=== PATIENT | female | born 1980 | race Caucasian/White ===

== ENCOUNTER → 2017-01-07 | Outpatient (CLI) | payer OTHER ==
--- NOTE | 2017-01-07 19:20 | CT ---
EXAMINATION TYPE: CT soft tissue neck w con DATE OF EXAM: 01/07/2017 7:13 PM COMPARISON: NONE HISTORY: Throat pain x 3 months. Pain under jaw, left side. Painful swallowing. CT DLP: 677.00 mGycm Automated exposure control for dose reduction was used. CONTRAST: CT scan of the neck is performed following with IV Contrast, patient injected with 100 mL of Omnipaqu e 300. Axial images are obtained, coronal and sagittal reformatted images are reviewed. FINDINGS: The thyroid gland appears normal. There is normal contrast opacification of carotid arteries and jugu lar veins. There is contrast normal opacification of the vertebral arteries. Epiglottis appears normal. There is no evidence of pharyngeal mass. Trachea appears normal. There is mucosal thickening in the left maxillary sinus. The submandibular salivary glands are symmet gordo. Parotid glands are symmetric. There is mild hypertrophy of the adenoids. Adenoids measures 13 mm . I see no bony destructive process. I see no cervical adenopathy.: IMPRESSION: There is mild hypertrophy of the adenoids. Mucous retention cyst left maxillary sinus. N o evidence of a pharyngeal mass.
== END | disposition home or self-care (01) ==
LOC: RADCTMAIN 18:47
PROVIDERS: ATTEND Family Medicine
DX: J35.2 Hypertrophy of adenoids (principal); R07.0 Pain in throat
CPT/HCPCS: 70491; Q9967

== ENCOUNTER → 2017-01-10 | Outpatient (CLI) | payer OTHER ==
--- NOTE | 2017-01-10 23:16 | MR ---
MRI CERVICAL SPINE: CLINICAL HISTORY: Headaches with neck pain causing left arm weakness per patient. Cervical region spi nal stenosis per order. TECHNIQUE: Multiplanar, multisequence imaging of the cervical spine is performed without IV contrast. COMPARISON: CT neck January 07, 2017. FINDINGS: Coronal images redemonstrates slight levoconvex scoliotic curvature centered in the mid to lower cervical spine. Sagittal images of the cervical spine show the craniocervical junction to appea r within normal limits. The cervical and upper thoracic spinal cord is normal in caliber and signal. Vertebral alignment is straightened on sagittal images. The vertebral body and intravertebral disk heights are normal. Small posterior disc herniation is seen C5-C6 level mildly effacing anterior the narinder sac. The bone marrow signal intensity is within normal limits. No significant spurring is seen. Axial images show the C2-C3, C3-C4, and C4-C5 levels to appear within normal limits. Axial images at C5-C6 level show broad-based disc protrusion effacing anterior thecal sac and causing moderate left and mild right-sided neural foraminal narrowing on axial image 23. Axial images at C6-C7 and C7-T1 levels are felt within normal limits. IMPRESSION: Loss of normal cervical curvature with degenerative change C5-C6 level noted.
== END | disposition home or self-care (01) ==
LOC: RADMRIMAIN 19:45
PROVIDERS: ATTEND Physician Assistant
DX: M47.812 Spondylosis without myelopathy or radiculopathy, cervical region (principal); M53.82 Other specified dorsopathies, cervical region
CPT/HCPCS: 72141

== ENCOUNTER 2017-07-18 20:00 | Emergency (ER) | payer BC, OTHER ==
[2017-07-18 20:04] VITALS: RESP 18
[2017-07-18] MEDS ORDERED: SODIUM CHLORIDE 0.9% 1,000 ML IV STA (20:19)
[2017-07-18 20:54] LABS: Basophils % (A) 0 %; Eosinophils # (A) 0.3 k/uL (0-0.7); Eosinophils % (A) 2 %; HCT 45.7 % (34.0-46.0); HGB 14.9 gm/dL (11.4-16.0); Lymphocytes # (A) 2.6 k/uL (1.0-4.8); Lymphocytes % (A) 24 %; MCH 28.4 pg (25.0-35.0); MCHC 32.6 g/dL (31.0-37.0); MCV 87.1 fL (80.0-100.0); Mean Platelet Volume 7.8; Monocytes # (A) 0.5 k/uL (0-1.0); Monocytes % (A) 5 %; Neutrophils # (A) 7.4 k/uL (1.3-7.7); Neutrophils % (A) 68 %; Platelet Count 116 k/uL (150-450); RBC 5.24 m/uL (3.80-5.40); RDW 13.1 % (11.5-15.5); WBC 10.9 k/uL (3.8-10.6)
[2017-07-18 21:05] LABS: ALT 23 U/L (9-52); AST 20 U/L (14-36); Albumin 4.4 g/dL (3.5-5.0); Alkaline Phosphatase 62 U/L (38-126); Anion Gap 12 mmol/L; Blood Urea Nitrogen 10 mg/dL (7-17); Calcium 9.5 mg/dL (8.4-10.2); Carbon Dioxide 27 mmol/L (22-30); Chloride 103 mmol/L (98-107); Glucose 89 mg/dL (74-99); Magnesium 2.1 mg/dL (1.6-2.3); Potassium 3.9 mmol/L (3.5-5.1); Sodium 142 mmol/L (137-145); Total Bilirubin 0.6 mg/dL (0.2-1.3); Total Protein 6.8 g/dL (6.3-8.2)
--- NOTE | 2017-07-18 21:09 | ED ---
Arrhythmia/Palpitations HPI - General Chief Complaint: Arrhythmia/Palpitations Stated Complaint: Tachy sent by [employer] Time Seen by Provider: 07/18/17 20:08 Source: patient, RN notes reviewed, old records reviewed Mode of arrival: ambulatory Limitations: no limitations - History of Present Illness Initial Comments: 36-year-old female sent by [facility] complaint of episodes of palpitations. She reports she has been having these symptoms off and on for many years. She reports it's been worse for the past 3 weeks. She went to [facility] my sent here due to abnormal EKG. She states that she wasn't chest pain and discomfort into her left arm when she has these symptoms. She denies any fever or chills. No nausea or vomiting or diaphoresis. Patient relates that she was supposed to have a stress test completed 5 years ago but then she found out that she had a bad knee and could not complete the walking test, as well as then later found out she was and cannot proceed with chemical test. She reports she never followed up with cardiology after this. She states that she had no major concerning symptoms afterward however as stated above has been worse over the past 3 weeks. Patient is a heavy tobacco smoker. She has a history of asthma. - Related Data Home Medications Medication Instructions Recorded Confirmed HYDROcodone/APAP 10-325MG [Lee 1 tab PO TID PRN 07/18/17 07/18/17 10-325] Lisdexamfetamine Dimesylate 50 mg PO QAM 07/18/17 07/18/17 [Vyvanse] Allergies Allergy/AdvReac Type Severity Reaction Status Date / Time latex Allergy Severe Rash/Hives Verified 07/18/17 20:23 NSAIDS (Non-Steroidal Allergy Unknown Swelling Verified 07/18/17 20:23 Anti-Inflamma Review of Systems ROS Statement: Those systems with pertinent positive or pertinent negative responses have been documented in the HPI. ROS Other: All systems not noted in ROS Statement are negative. Past Medical History Past Medical History: Asthma, Musculoskeletal Disorder Additional Past Medical History / Comment(s): MIGRAINES, PT STATES IRREGULAR HEARTBEAT, HERNIATED DISCS, "SWELLING IN LEGS AND ANKLES" History of Any Multi-Drug Resistant Organisms: None Reported Past Surgical History: Ear Surgery, Tonsillectomy Additional Past Surgical History / Comment(s): D & C, HYSTEROSCOPY, LEEP PROCEDURE, EAR TUBES X3. Past Anesthesia/Blood Transfusion Reactions: Family History of Problems w/ Anesthesia, Postoperative Nausea & Vomiting (PONV) Additional Past Anesthesia/Blood Transfusion Reaction / Comment(s): PT STATES SHE HAD SEVERE SWELLING ALL OVER. PTS MOTHER HAD SWELLING , DIFFICULTY BREATHING AND DIFFICULTY WAKING UP POST OP. Past Psychological History: Anxiety, Bipolar, Depression Smoking Status: Heavy tobacco smoker Past Alcohol Use History: None Reported Past Drug Use History: Marijuana - Past Family History Mother Family Medical History: Cancer, Congestive Heart Failure (CHF) Additional Family Medical History / Comment(s): CERVICAL CA Sister(s) Family Medical History: Hypertension Brother(s) Family Medical History: Hypertension General Exam - General Exam Comments Initial Comments: 36 year old female, no distress. Limitations: no limitations General appearance: alert, in no apparent distress Head exam: Present: atraumatic, normocephalic, normal inspection Eye exam: Present: normal appearance, PERRL, EOMI. Absent: scleral icterus, conjunctival injection, periorbital swelling ENT exam: Present: normal exam, mucous membranes moist Neck exam: Present: normal inspection. Absent: tenderness, meningismus, lymphadenopathy Respiratory exam: Present: normal lung sounds bilaterally. Absent: respiratory distress, wheezes, rales, rhonchi, stridor Cardiovascular Exam: Present: regular rate, normal rhythm, normal heart sounds. Absent: systolic murmur, diastolic murmur, rubs, gallop, clicks Extremities exam: Present: normal inspection, full ROM, normal capillary refill. Absent: tenderness, pedal edema, joint swelling, calf tenderness Back exam: Present: normal inspection Neurological exam: Present: alert, oriented X3, CN II-XII intact Psychiatric exam: Present: normal affect, normal mood Skin exam: Present: warm, dry, intact, normal color. Absent: rash Course Vital Signs 07/18/17 07/18/17 07/18/17 20:01 21:20 21:56 Temperature 97.5 F L Pulse Rate 94 Pulse Rate [ 98 91 [employer] ] Respiratory 18 Rate Blood Pressure 128/75 Blood Pressure 124/62 [Left Arm Sitting] Blood Pressure 123/65 [Left Arm Standing] Blood Pressure 118/61 [Left Arm Supine] O2 Sat by Pulse 99 Oximetry 07/18/17 23:42 Temperature 98.5 F Pulse Rate 94 Pulse Rate [ [employer]er ] Respiratory 18 Rate Blood Pressure 119/57 Blood Pressure [Left Arm Sitting] Blood Pressure [Left Arm Standing] Blood Pressure [Left Arm Supine] O2 Sat by Pulse 98 Oximetry Medical Decision Making - Medical Decision Making 36-year-old female sent by [facility] complaint of episodes of palpitations. She reports she has been having these symptoms off and on for many years. She reports it's been worse for the past 3 weeks. She went to [facility] my sent here due to abnormal EKG[facility] was reviewed unmarkalbe for arrythmias. Normal troponin, and other labs were reviewed. Patient had elevated Dimer. CT angio chest was negative for PE. Discussed with normal troponin, and normal EKG without arrythmia, patient can follow up outpatiently. Discussed likely needing holter monitor. Patient reports no palpitations from the emergency department. Discussed return parameters. - Lab Data Result diagrams: 07/18/17 20:42 07/18/17 20:42 Lab Results 07/18/17 07/18/17 07/18/17 Range/Units 20:42 20:42 20:42 WBC 10.9 H (3.8-10.6) k/uL RBC 5.24 (3.80-5.40) m/uL Hgb 14.9 (11.4-16.0) gm/dL Hct 45.7 (34.0-46.0) % MCV 87.1 (80.0-100.0) fL MCH 28.4 (25.0-35.0) pg MCHC 32.6 (31.0-37.0) g/dL RDW 13.1 (11.5-15.5) % Plt Count 116 L (150-450) k/uL Neutrophils % 68 % Lymphocytes % 24 % Monocytes % 5 % Eosinophils % 2 % Basophils % 0 % Neutrophils # 7.4 (1.3-7.7) k/uL Lymphocytes # 2.6 (1.0-4.8) k/uL Monocytes # 0.5 (0-1.0) k/uL Eosinophils # 0.3 (0-0.7) k/uL Basophils # 0.0 (0-0.2) k/uL PT (9.0-12.0) sec INR (<1.2) APTT (22.0-30.0) sec D-Dimer (<0.60) mg/L FEU Sodium 142 (137-145) mmol/L Potassium 3.9 (3.5-5.1) mmol/L Chloride 103 (98-107) mmol/L Carbon Dioxide 27 (22-30) mmol/L Anion Gap 12 mmol/L BUN 10 (7-17) mg/dL Creatinine 0.64 (0.52-1.04) mg/dL Est GFR (CKD-EPI)AfAm >90 (>60 ml/min/1.73 sqM) Est GFR (CKD-EPI)NonAf >90 (>60 ml/min/1.73 sqM) Glucose 89 (74-99) mg/dL Calcium 9.5 (8.4-10.2) mg/dL Magnesium 2.1 (1.6-2.3) mg/dL Total Bilirubin 0.6 (0.2-1.3) mg/dL AST 20 (14-36) U/L ALT 23 (9-52) U/L Alkaline Phosphatase 62 (38-126) U/L Total Creatine Kinase 68 (30-135) U/L CK-MB (CK-2) 0.3 (0.0-2.4) ng/mL CK-MB (CK-2) Rel Index 0.4 Troponin I <0.012 (0.000-0.034) ng/mL Total Protein 6.8 (6.3-8.2) g/dL Albumin 4.4 (3.5-5.0) g/dL TSH 1.340 (0.465-4.680) mIU/L Urine Opiates Screen (NotDetected) Ur Oxycodone Screen (NotDetected) Urine Methadone Screen (NotDetected) Ur Propoxyphene Screen (NotDetected) Ur Barbiturates Screen (NotDetected) U Tricyclic Antidepress (NotDetected) Ur Phencyclidine Scrn (NotDetected) Ur Amphetamines Screen (NotDetected) U Methamphetamines Scrn (NotDetected) U Benzodiazepines Scrn (NotDetected) Urine Cocaine Screen (NotDetected) U Marijuana (THC) Screen (NotDetected) 07/18/17 07/18/17 07/18/17 Range/Units 20:42 20:42 20:42 WBC (3.8-10.6) k/uL RBC (3.80-5.40) m/uL Hgb (11.4-16.0) gm/dL Hct (34.0-46.0) % MCV (80.0-100.0) fL MCH (25.0-35.0) pg MCHC (31.0-37.0) g/dL RDW (11.5-15.5) % Plt Count (150-450) k/uL Neutrophils % % Lymphocytes % % Monocytes % % Eosinophils % % Basophils % % Neutrophils # (1.3-7.7) k/uL Lymphocytes # (1.0-4.8) k/uL Monocytes # (0-1.0) k/uL Eosinophils # (0-0.7) k/uL Basophils # (0-0.2) k/uL PT 11.7 (9.0-12.0) sec INR 1.2 H (<1.2) APTT 22.8 (22.0-30.0) sec D-Dimer 1.02 H (<0.60) mg/L FEU Sodium (137-145) mmol/L Potassium (3.5-5.1) mmol/L Chloride (98-107) mmol/L Carbon Dioxide (22-30) mmol/L Anion Gap mmol/L BUN (7-17) mg/dL Creatinine (0.52-1.04) mg/dL Est GFR (CKD-EPI)AfAm (>60 ml/min/1.73 sqM) Est GFR (CKD-EPI)NonAf (>60 ml/min/1.73 sqM) Glucose (74-99) mg/dL Calcium (8.4-10.2) mg/dL Magnesium (1.6-2.3) mg/dL Total Bilirubin (0.2-1.3) mg/dL AST (14-36) U/L ALT (9-52) U/L Alkaline Phosphatase (38-126) U/L Total Creatine Kinase (30-135) U/L CK-MB (CK-2) (0.0-2.4) ng/mL CK-MB (CK-2) Rel Index Troponin I (0.000-0.034) ng/mL Total Protein (6.3-8.2) g/dL Albumin (3.5-5.0) g/dL TSH (0.465-4.680) mIU/L Urine Opiates Screen Detected H (NotDetected) Ur Oxycodone Screen Not Detected (NotDetected) Urine Methadone Screen Not Detected (NotDetected) Ur Propoxyphene Screen Not Detected (NotDetected) Ur Barbiturates Screen Not Detected (NotDetected) U Tricyclic Antidepress Not Detected (NotDetected) Ur Phencyclidine Scrn Not Detected (NotDetected) Ur Amphetamines Screen Detected H (NotDetected) U Methamphetamines Scrn Not Detected (NotDetected) U Benzodiazepines Scrn Not Detected (NotDetected) Urine Cocaine Screen Not Detected (NotDetected) U Marijuana (THC) Screen Detected H (NotDetected) 07/18/17 21:09 EKG performed at 2009 shows a sinus rhythm rightward axis. Borderline EKG noted. Ventricular rate 94 bpm. Verbal 120 ms. QRS duration 84 ms. QT QTc is 348/435 ms. - Radiology Data Radiology results: report reviewed Negative CT angiogram of the chest. No evidence of PE. Disposition Clinical Impression: Palpitation Disposition: HOME SELF-CARE Condition: Good Instructions: Palpitations (ED) Additional Instructions: Patient advised to follow-up with primary care provider and cardiology. Return to the emergency department if any alarming signs or symptoms occur. Is patient prescribed a controlled substance at d/c from ED?: No If prescribed controlled substance>3 days was MAPS reviewed?: No When asked, does pt state using other controlled substances?: No Referrals: Ivan Mack DO [Primary Care Provider] - 1-2 days Time of Disposition: 23:43
[2017-07-18 21:12] LABS: Amphetamine Screen,Urine Detected (NotDetected); Barbiturate Screen,Urine Not Detected (NotDetected); Benzodiazepines Screen,Urine Not Detected (NotDetected); Cocaine Screen,Urine Not Detected (NotDetected); Methadone Screen, Urine Not Detected (NotDetected); Opiate Screen,Urine Detected (NotDetected); Oxycodone Screen, Urine Not Detected (NotDetected); Phencyclidine Screen,Urine Not Detected (NotDetected); Tricyclic Antidepressant,Urine Not Detected (NotDetected); Urn Cannabinoid Scrn Detected (NotDetected)
[2017-07-18 21:18] LABS: Creatine Kinase 68 U/L (30-135)
[2017-07-18 21:21] LABS: INR 1.2 (<1.2); Partial Thromboplastin Time 22.8 sec (22.0-30.0); Prothrombin Time 11.7 sec (9.0-12.0)
[2017-07-18 21:31] LABS: Creatine Kinase MB 0.3 ng/mL (0.0-2.4); Troponin I <0.012 ng/mL (0.000-0.034)
--- NOTE | 2017-07-18 21:38 | XR ---
EXAMINATION TYPE: XR chest 2V DATE OF EXAM: 07/18/2017 COMPARISON: 11/07/2011 HISTORY: Dizziness TECHNIQUE: Frontal and lateral views of the chest are obtained. FINDINGS: Heart and mediastinum are normal. Lungs are clear. Diaphragm is normal. Bony thorax is int act. There are chest leads. IMPRESSION: Normal chest. No change.
--- NOTE | 2017-07-18 22:59 | CT ---
EXAMINATION TYPE: CT chest angio for PE DATE OF EXAM: 07/18/2017 COMPARISON: NONE HISTORY: Chest and left shoulder pain x [address] DLP: 250.8 mGycm Automated exposure control for dose reduction was used. CONTRAST: CT Chest for pulmonary embolism performed with with IV Contrast, patient injected with 100 mL of Isov ue 370. FINDINGS: There are 3-D post processed images. Lungs are clear of infiltrate. There is no pleural effusion. Thoracic aorta appears normal. There is no sign of aneurysm or dissection. I see no filling defects in the pulmonary arteries. There are no h ilar masses. There are small paratracheal lymph nodes that measure less than 1 cm. Bony thorax is int act. IMPRESSION: Negative CT angiogram of the chest. No evidence of pulmonary embolism.
[2017-07-18] MEDS: RX INFO: IV CONTRAST WAS GIVEN 1 EACH MISC MISCELLANE PRN ×2 (23:41→23:42)
[2017-07-18 23:43] VITALS: BP 119/57; PULSE 94; TEMP 98.5
== END 2017-07-18 23:50 | disposition home or self-care (01) ==
LOC: EC 20:00
DX: R00.2 Palpitations (principal); F17.200 Nicotine dependence, unspecified, uncomplicated; Z79.899 Other long term (current) drug therapy; Z91.040 Latex allergy status; Z88.6 Allergy status to analgesic agent
CPT/HCPCS: 99285; 96360; 96361; 36415; 93005; 85379; 80053; 82550; 82553; 83735; 84443; 84484; 85025; 85610; 85730; 80306; 71046; 71275; Q9967

== ENCOUNTER → 2017-08-05 | Outpatient (CLI) | payer BC, OTHER ==
--- NOTE | 2017-08-05 11:12 | EST ---
EXERCISE STRESS AGE: 36 SEX: F HT: 69" WT: 204 PROTOCOL: Gonzalo Stress Test STAGE: 2 DURATION OF EXERCISE: 6:00 HEART RATE REST: 98 BLOOD PRESSURE REST: 115/80 MAXIMUM HEART RATE ACHIEVED: 142 MAXIMUM BLOOD PRESSURE: 137/67 85% MPHR: 158 100% MPHR: 186 METS: 10.5 INDICATIONS: Palpitations. CLINICAL INFORMATION: STRESS DATA: Pretesting physical examination showed a heart rate of 98, pressure is 115/80 mmHg. Baseline EKG shows sinus mechanism. The patient exercised on the treadmill according to Gonzalo protocol for a total of 6 minutes and achieved 10.5 METS with max heart rate was 142, which is about 76% of maximum predicted heart rate. Maximum blood pressure was 137/67 mmHg. Clinically, she did not have any symptoms of chest pain or discomfort but she developed severe dizziness and lightheadedness and we had to terminate the stress test because of that. CONCLUSION: 1. Average exercise capacity. 2. Nondiagnostic exercise treadmill stress test for the patient due to the patient not achieving 85% of maximum predicted heart rate. 3. The patient achieved only 76% of maximum predicted heart rate and we had to terminate the test because of severe dizziness and lightheadedness while she was walking on treadmill. MMODL / IJN: [id number] /
--- NOTE | 2017-08-16 08:43 | EM ---
EVENT MONITOR A 7-DAY EVENT MONITOR. INDICATION OF THE STUDY: Cardiac arrhythmia. CLINICAL INFORMATION: The patient was monitored for 7 days. The baseline rhythm appeared to be sinus mechanism. The patient did have one episode of junctional tachycardia at a heart rate of 107 beats per minute and during this episode she was asymptomatic. Beside that, there was multiple episodes of sinus tachycardia noted and during these episodes, the patient reported some symptoms of being dizzy and lightheaded. No evidence of any advanced AV block. No evidence of cardiac arrhythmia noted beside the junctional tachycardia. CONCLUSION: 1. This is a 7-day event monitor. 2. Sinus rhythm is the baseline mechanism. 3. One episode of junctional tachycardia with a heart rate of 107 beats per minute and during this episode the patient was asymptomatic. 4. Multiple episodes of sinus tachycardia and during this episode the patient was experiencing shortness of breath as well as dizziness and lightheadedness. 5. There is no evidence of any advanced AV block seen. 6. There is no evidence of any sinus pause or sinus arrest seen as well. MMODL / IJN: [id number] /
== END | disposition home or self-care (01) ==
LOC: RADNMMAIN 09:27
PROVIDERS: ATTEND Family Medicine
DX: R00.0 Tachycardia, unspecified (principal)
CPT/HCPCS: 93017; 93270; 93271

== ENCOUNTER → 2020-07-11 | Outpatient (CLI) | payer BC, OTHER ==
--- NOTE | 2020-07-11 09:59 | XR ---
EXAMINATION TYPE: XR sacrum coccyx DATE OF EXAM: 07/11/2020 COMPARISON: NONE HISTORY: Chronic pain Three views are submitted. Sacrum is intact. SI joints are symmetric. Coccyx appears to be intact. Visualized pelvic structures intact. Calcifications in the pelvis likely vascular. IMPRESSION: 1. No acute fracture.
[2020-07-11 14:05] LABS: Creatine Kinase 104 U/L (26-186); Rheumatoid Factor, Qnt 4 IU/mL (0-15)
[2020-07-11 15:48] LABS: Anti-DNA, DS unit <1.0 IU/mL; Anti-Smith Ab Interp NEGATIVE (NEGATIVE); Centromere Antibody <0.2 AI; Centromere Antibody Interp NEGATIVE (NEGATIVE); DNA Double-Stranded NEGATIVE (NEGATIVE); JO-1 IgG Antibody <0.2 AI; Scleroderma SC-70 Ab <0.2 AI
[2020-07-11 16:00] LABS: Cyclic Citrull Pep IgG Unit <0.5 U/mL; Cyclic Citrullinated Pep IgG NEGATIVE (NEGATIVE)
[2020-07-12 12:17] LABS: HLA B27 NEGATIVE
[2020-07-14 11:19] LABS: Angiotensin-1 Converting Enz. 48 U/L (8-52)
[2020-07-14 11:20] LABS: Aldolase 3.6 U/L (1.2-7.6)
== END | disposition home or self-care (01) ==
LOC: LABWHC1 07:20
PROVIDERS: ATTEND Physician Assistant
DX: M51.36 Other intervertebral disc degeneration, lumbar region (principal); M53.3 Sacrococcygeal disorders, not elsewhere classified
CPT/HCPCS: 36415; 72220; 82085; 82164; 82550; 83516; 86038; 86200; 86225; 86235; 86431; 86812